=== PATIENT | female | born 1990 | race Caucasian/White ===

== ENCOUNTER 2019-05-05 08:03 | Inpatient (IN) | payer OTHER ==
[~2019-05-05] VITALS: Ht 160 cm; Wt 73.2 kg
[2019-05-05] VITALS (9 sets, daily range): BP systolic 112–124; BP diastolic 68–80
[2019-05-05] MEDS ORDERED: PRENTAB9 PO (08:19)
[2019-05-05] MEDS ORDERED: LACTATED RINGER'S 1000 ML IV STA (09:25)
[2019-05-05] MEDS: miSOPROStol 25 MCG 1/4 TAB (S0191) PO PRN ×3 (09:45→22:12)
[2019-05-05 09:59] LABS: BASO % 0.4 % (0.0-1.0); EOS % 0.4 % (0.0-3.0); HEMATOCRIT 34.2 % (36.0-47.0); HEMOGLOBIN 10.2 g/dl (12.0-15.5); LYMPH # 2.3 10^3/uL (1.5-5.0); LYMPH % 24.6 % (24.0-44.0); MEAN CORPUSCULAR HEMOGLOBIN 21.5 pg (27.0-33.0); MEAN CORPUSCULAR HGB CONC 29.8 g/dl (32.0-36.5); MONO # 0.6 10^3/uL (0.0-0.8); MONO % 6.5 % (0.0-5.0); NEUTROPHILS # 6.2 10^3/uL (1.5-8.5); NEUTROPHILS % 67.6 % (36.0-66.0); PLATELET COUNT, AUTOMATED 252 10^3/uL (150-450); RED BLOOD COUNT 4.75 10^6/uL (4.00-5.40); WHITE BLOOD COUNT 9.2 10^3/uL (4.0-10.0)
--- NOTE | 2019-05-05 10:50 | HPEPDOC ---
Obstetrical History & Physical General Date of Admission May 05, 2019 at 08:03 History of Present Illness Patient is a at 41.1wks by LMP c/w 8wk US. Here for postdates induction. No contractions, bleeding, loss of fluid. Good movement. Chief Complaint: Other (Postdates) Information Provided By: Patient Care Care: Good Care Dating Final EDC: Apr 27, 2019 Final EDC by: LMP LMP: July 21, 2018 Antepartum Course Height (inches): 63 Pre- weight (lbs.): 145 Admission Weight (lbs.): 162 Change in Weight (lbs.): 18 Past Medical History Past Obstetrical History : Past Obstetrical History: [employer] History: History of STD (Chlamydia 1st trimester) Past Medical History Medical History None Surgical History: [place] teeth, Other (Left fingers) Family History Significant Family History: No pertinent family hx Social History Marital Status: Family situation: Spouse/partner home Psychosocial History: No pertinent psych hx * Smoker: non-smoker Alcohol: Denies Drugs: denies Abuse Violence Screening Have you been hit/kicked/slapp: No Have you been sexually assault: No Imunizations Tdap status: current Influenza Status: declined Allergies Coded Allergies: No Known Allergies (Unverified , 05/05/19) Medications Scheduled No.137/Iron/Folic Acd ( Vitamin Tablet) 1 Each Tablet, 1 TAB PO DAILY Physical Examination Physical Examination GENERAL: Alert and oriented times three. BREAST: . ABDOMEN: Gravid and non-tender to touch. FETUS: Is vertex (VTX) by sterile vaginal examination (SVE), fetus is vertex (VTX) by Asaf with EFW 3500gm. HEART RATE: Regular rate and rhythm. LUNGS: Clear to auscultation (CTA). EXTREMITIES: No edema. Vital Signs/I&O Vital Signs Date Time Temp Pulse Resp B/P (MAP) Pulse Ox O2 Delivery O2 Flow Rate FiO2 05/05/19 08:16 98.4 92 18 122/76 (91) Laboratory Data 24H LABS Laboratory Tests 2 05/05/19 08:15: Serology Scanned Report Hepatitis B Testing 05/05/19 09:16: Immature Granulocyte % (Auto) 0.5, Neutrophils (%) (Auto) 67.6H, Lymphocytes (%) (Auto) 24.6, Monocytes (%) (Auto) 6.5H, Eosinophils (%) (Auto) 0.4, Basophils (%) (Auto) 0.4, Neutrophils # (Auto) 6.2, Lymphocytes # (Auto) 2.3, Monocytes # (Auto) 0.6, Eosinophils # (Auto) 0.0, Basophils # (Auto) 0.0, Nucleated Red Blood Cells % (auto) 0.0, Syphilis Serology NONREACTIVE CBC/BMP Laboratory Tests 05/05/19 09:16 Pertinent Laboratoy Data Blood Type: O+ RBC Antibody Screen: Negative Hepatitis B: Negative Rapid Plasma Reagin: Nonreactive Rubella: Immune Varicella: Immune Chlamydia/Gonorrhea: Negative Group B Streptococcus: Negative Quad Screen Test: Negative (21T done negative) Glucose Tolerance Test: 115 Anatomy Ultrasound Ultrasound Date: Dec 09, 2018 Placenta Location: Posterior Normal Anatomy: Yes Placenta Previa: No Estimated Weight (grams): 319 Steroid Therapy Steroid Therapy: No Vaginal Examination Dilation: Fingertip Effacement: other (0) Station: -3 Cervical Consistency: Firm Cervical Position: Posterior Presentation: Cephalic presentation Assessment Heart Rate (FHR): 120 Accelerations: Positive Decelerations: None Tocometer Contractions: Yes Frequency: irregular, greater than 9 min/apart Multi-drug resistant Organism: No history of MDRO Assessment/Plan Assessment Patient is a at 41.1wks by LMP c/w 8wk US. Admit for IOL and expect delivery by . Pain management per patient preference, which was discussed with her. I discussed risks of with patient of failure with section, distress, bleeding, infection, , vaginal or perineal or neighboring organ tear. She also understands that inductions are long processes which may take days. Currently, fetus is reassuring. GBS is negative, no need for antibiotics. Plan Admit and orient. Stroboroma Operator and consent. Diet: Regular. Group B Streptococcus (GBS) negative. Labs and intravenous (IV) per unit protocol. Counseled on Pitocin and induction of labor (IOL). Lactated Ringers (LR): Bolus 500 mL, then at 125 mL/hr once in active labor or epidural. Anticipate normal spontaneous delivery (). Will start induction with PO cytotec. Pain mgt per patient. Karey Pope MD May 05, 2019 10:50
[2019-05-05] MEDS ORDERED: ACETAMINOPHEN 500 MG TAB PO PRN (14:45)
[2019-05-05] MEDS: LR 1,000 ML IV SCH (22:24)
[2019-05-06] VITALS (17 sets, daily range): BP systolic 107–143; BP diastolic 62–101
[2019-05-06] MEDS: miSOPROStol 25 MCG 1/4 TAB (S0191) PO PRN (04:17)
--- NOTE | 2019-05-06 06:40 | IPNPDOC ---
Text Note Date of Service The patient was seen on 05/06/19. NOTE S: Patient has some cramping after initiation of Cytotec and then is comforta ble. No bleeding or discharge or loss of fluid. Good movement. No use of pain medications. A total of 4 Cytotec given. Last Cytotec given at 4 AM. O: Vital signs within normal limits. FHT: Category 1, 130s, reactive, no decelerations, irregular contractions. Abdomen nontender. Lower extremities nontender. Sterile vaginal exam deferred at this time. A/P: Patient is 28-year-old G1, P0 at 41 weeks with induction of labor via Cytotec for postdates. Fetus is reassuring. We will continue by mouth Cytotec and may consider Henry bulb with slight further dilation of the cervix. VS,Fishbone, I+O VS, Fishbone, I+O Laboratory Tests 05/05/19 09:16 Vital Signs Date Time Temp Pulse Resp B/P (MAP) Pulse Ox O2 Delivery O2 Flow Rate FiO2 05/06/19 05:19 67 126/86 (99) 05/06/19 04:01 97.8 18 I&O- Last 24 Hours up to 6 AM 05/06/19 06:00 Intake Total 1000 ml Balance 1000 ml Karey Pope MD May 06, 2019 06:40
--- NOTE | 2019-05-06 10:33 | IPNPDOC ---
Text Note Date of Service The patient was seen on 05/06/19. NOTE patient is a 28 yo G1 @ 41+2wks admitted for IOL for pending post dates. She had received cytotec 25mcg po x 4 doses. Denies feeling regular contractions. vitals: normal nad fht: 125/mod kenn/pos accel/no decel toco: irregular ctx ce: 1-2/50/-3 a/p patient no in labor, mukherjee bulb placed with 80cc placed on cervical side. continue with cytotec as needed. Le, DO VS,Fishbone, I+O VS, Fishbone, I+O Vital Signs Date Time Temp Pulse Resp B/P (MAP) Pulse Ox O2 Delivery O2 Flow Rate FiO2 05/06/19 08:13 97.8 88 18 123/73 (90) I&O- Last 24 Hours up to 6 AM 05/06/19 06:00 Intake Total 1000 ml Balance 1000 ml HO ADAMS DO May 06, 2019 10:33
[2019-05-06] MEDS ORDERED: miSOPROStol 50 MCG 1/2 TAB (S0191) SL ONE (15:00)
[2019-05-06] MEDS ORDERED: OXYTOCIN DRIP 30 UNITS in IV 1 EA IV SCH (16:30)
[2019-05-06] MEDS: LR 1,000 ML IV SCH (18:49)
[2019-05-06] MEDS ORDERED: BUTORPHANOL 2 MG/ML INJ (J0595) IV ONE (19:45)
[2019-05-06] MEDS ORDERED: PROMETHAZINE INJ 25 MG/ML VIAL (J2550) IV ONE (19:45)
[2019-05-07] VITALS (9 sets, daily range): BP systolic 104–138; BP diastolic 58–76
[2019-05-07] MEDS ORDERED: OXYTOCIN DRIP 30 UNITS in IV 1 EA IV SCH (01:46)
[2019-05-07] MEDS ORDERED: MEASLES,MUMPS,RUBELLA VACCINE INJ (MMR-II) (90707) SC SCH (02:00)
[2019-05-07] MEDS ORDERED: DIBUCAINE 1% OINTMENT 30GM TOP PRN (02:00)
[2019-05-07] MEDS ORDERED: DOCUSATE SODIUM 100 MG CAP PO PRN (02:00)
[2019-05-07] MEDS ORDERED: RHOGAM 300 MCG (1500 IU) INJ (J2790) IM SCH (02:00)
[2019-05-07] MEDS ORDERED: ACETAMINOPHEN TAB 650MG DOSE (2X325MG) PO PRN (02:00)
--- NOTE | 2019-05-07 02:00 | DNPDOC ---
[facility] Delivery Note Delivery Note DATE OF DELIVERY: 05/07/2019 PREDELIVERY DIAGNOSIS: 41+3/7 weeks' gestation. POST DELIVERY DIAGNOSIS: Delivered. PROCEDURE: Spontaneous vaginal delivery. NAIL PROFESSIONAL: Dr. Rhoda Monroe DO ANESTHESIA: none ESTIMATED BLOOD LOSS: 250mL. FINDINGS: 3340gm female infant, Score 7/9, nuchal cord times x1, right pos terior compound hand. DELIVERY SUMMARY: With good maternal effort, baby delivered OA, restituted ROT. Nuchal cord palpated, tight, unable to be reduced. Right compound hand delivered with posterior shoulder. Anterior (left shoulder) delivered. Body delivered while keeping cord close to introitus. Nuchal cord reduced. Baby placed on maternal abdomen. Cord allowed to stop pulsating. Cord clamped x 2 and cut by FOB. Cord blood collected per routine. Pitocin bolus started. Placenta delivered spontaneously. Fundus massaged firm. Inspection reveals minor abrasions not requiring repair. Baby and mother bonding when I left the room . DO BRYAN Monroe LUAT N. DO May 07, 2019 01:56
[2019-05-07] MEDS: IBUPROFEN 800 MG TAB PO PRN ×2 (03:51→17:12)
[2019-05-07] MEDS: PRENATAL VITAMINS CHEWABLE TABLET PO SCH (09:26)
[2019-05-08 06:21] VITALS: BP 131/74
--- NOTE | 2019-05-08 08:11 | IPNPDOC ---
Progress Note Date of Service: May 08, 2019 Day#: 1 Progress Note PPD 1 Monica is a 28yo [id number] s/p uncomplicated after IOL for LTG, delivering very early on 05/07, doing well day # 1. She has been ambulating, voiding spontaneously without issue and tolerating regular diet. Breast feeding without issue. Reports lochia is like a normal period. No f/c/n/v/SOB/CP. OBJECTIVE: VITAL SIGNS: Within normal limits, afebrile. Alert and oriented times three. Abdomen: Fundus firm at U-2. Soft, NTTP. Extremities: trace edema of BLE ASSESSMENT: Monica is a 28yo [id number] s/p uncomplicated after IOL for LTG, delivering very early on 05/07, doing well day # 1. Vitals within normal limits, afebrile, hemodynamically stable with no evidence of infection. PLAN: 1. Routine care 2. Tylenol and Motrin for pain. 3. Encourage breast feeding and ambulation. 4. would like to use condoms for contraception 5. regular diet 6. possible discharge home tomorrow if meeting all milestones Dr. Batsheva Allan MD VS, I&O, 24H, Fishbone Vital Signs/I&O Vital Signs Date Time Temp Pulse Resp B/P (MAP) Pulse Ox O2 Delivery O2 Flow Rate FiO2 05/08/19 06:21 97.6 86 18 131/74 (93) Room Air 99 Batsheva Allan MD May 08, 2019 08:11
[2019-05-08] MEDS: PRENATAL VITAMINS CHEWABLE TABLET PO SCH (08:59)
[2019-05-08 18:00] VITALS: BP 120/71
[2019-05-08] MEDS: IBUPROFEN 800 MG TAB PO PRN (21:52)
[2019-05-09 05:45] VITALS: BP 122/70
[2019-05-09] MEDS: PRENATAL VITAMINS CHEWABLE TABLET PO SCH (08:36)
[2019-05-09] MEDS: IBUPROFEN 800 MG TAB PO PRN (08:36)
--- NOTE | 2019-05-09 09:40 | OBDS ---
[facility] Obstetrical Discharge Sum. Obstetrical Discharge Summary Central Supply Assistant/Provider: HO ADAMS DO Date: May 09, 2019 : 1 Term: 1 Pre-term: 0 Abortions: 0 Livin VDRL: Non-Reactive Rh: Positive Rubella: Immune Sex: Female Infant Weight: grams (3340) A/P, Post Course List any complications Admission diagnosis: Gravid at 41+1wks Discharge diagnosis: () Condition at Discharge: stable Discharge Instructions: Home Activity: as tolerated Diet: regular Medications: filled at [facility] Follow-up: 6-8wks Hospital course: Patient admitted for induction of labor for pending post dates. She progressed to have an spontaneous vaginal delivery. course uncomplicated and patient discharged on day #2. HO ADAMS DO May 09, 2019 09:40
--- NOTE | 2019-05-09 09:42 | IPNPDOC ---
Progress Note Date of Service: May 09, 2019 Day#: 2 Progress Note Monica is a 28yo [id number] s/p uncomplicated after IOL for pending post da zack. She has no concerns today. She has been ambulating, voiding spontaneously without issue and tolerating regular diet. Breast feeding without issue. Reports lochia is like a normal period. Baby on bili lights. OBJECTIVE: VITAL SIGNS: Within normal limits, afebrile. Alert and oriented times three. Abdomen: Fundus firm at U-2. Soft, NTTP. Extremities: trace edema of BLE symmetrical a/p PPD #2, doing well. discussed contraceptive options, patient not interested at this time. continue routine ppc. d/c to boarding today. VS, I&O, 24H, Fishbone Vital Signs/I&O Vital Signs Date Time Temp Pulse Resp B/P (MAP) Pulse Ox O2 Delivery O2 Flow Rate FiO2 05/09/19 05:45 97.7 87 20 122/70 (87) Room Air 97 HO ADAMS DO May 09, 2019 09:42
== END 2019-05-09 12:00 | disposition home or self-care (01) | DRG 807 ==
LOC: M LDI 08:03 → M OBS 05-07 03:55
PROVIDERS: ADMIT Obstetrics & Gynecology; ATTEND Obstetrics & Gynecology
PROC: 3E0P7GC Introduction of Other Therapeutic Substance into Female Reproductive, Via Natural or Artificial Opening (ICD-10-PCS; 2019-05-05)
PROC: 10E0XZZ Delivery of Products of Conception, External Approach (ICD-10-PCS; principal; 2019-05-07)
DX: O48.0 Post-term pregnancy (principal); Z37.0 Single live birth; Z3A.41 41 weeks gestation of pregnancy; O32.6XX0 Maternal care for compound presentation, not applicable or unspecified; O69.1XX0 Labor and delivery complicated by cord around neck, with compression, not applicable or unspecified

== ENCOUNTER → 2021-08-17 | Outpatient (CLI) | payer OTHER ==
[~2021-08-17] MED LIST: PRENTAB9 PO
== END ==
LOC: M WHC 12:25
PROVIDERS: ATTEND Registered Nurse
DX: Z36.89 Encounter for other specified antenatal screening (principal); Z3A.37 37 weeks gestation of pregnancy; Z86.16 Personal history of COVID-19

== ENCOUNTER 2021-09-01 16:22 | Inpatient (IN) | payer OTHER ==
[~2021-09-01] VITALS: Ht 160 cm; Wt 69.0 kg
[2021-09-01] VITALS (7 sets, daily range): BP systolic 103–142; BP diastolic 66–91
[2021-09-01] MEDS ORDERED: HOME MED LIST COMPLETE! XX SCH (16:40)
[2021-09-01] MEDS ORDERED: OXYTOCIN INJ 10 UNITS/ML VIAL (J2590) IV PRN (16:55)
[2021-09-01] MEDS ORDERED: LR 1,000 ML IV SCH ×2 (16:55→18:55)
[2021-09-01] MEDS ORDERED: LACTATED RINGER'S 1000 ML IV ONE (16:55)
[2021-09-01] MEDS ORDERED: OXYTOCIN DRIP 30 UNITS in IV 1 EA IV PRN ×4 (16:55)
[2021-09-01] MEDS ORDERED: METHYLERGONOVINE MALEATE 0.2 MG/ML VIAL (J2210) IM PRN (16:55)
[2021-09-01] MEDS ORDERED: TRANEXAMIC ACID INJection 1,000 MG in NS 100 ML IV PRN (16:55)
[2021-09-01] MEDS ORDERED: OXYTOCIN INJ 10 UNITS/ML VIAL (J2590) As Ordered ONE (16:59)
[2021-09-01] MEDS ORDERED: OXYTOCIN 30 UNITS IN 0.9% NaCl 500ML IV BAG (J2590) As Ordered ONE (16:59)
[2021-09-01 17:23] LABS: HEMATOCRIT 35.5 % (36.0-47.0); HEMOGLOBIN 10.6 g/dl (12.0-15.5); MEAN CORPUSCULAR HEMOGLOBIN 20.7 pg (27.0-33.0); MEAN CORPUSCULAR HGB CONC 29.9 g/dl (32.0-36.5); MEAN CORPUSCULAR VOLUME 69.3 fl (80.0-96.0); PLATELET COUNT, AUTOMATED 271 10^3/uL (150-450); RED BLOOD COUNT 5.12 10^6/uL (4.00-5.40); WHITE BLOOD COUNT 17.9 10^3/uL (4.0-10.0)
[2021-09-01 17:38] LABS: CORD GAS ABE A -3.4; CORD GAS ABE V -3.9; CORD GAS HCO3 A 24.5 MEQ/L; CORD GAS HCO3 V 20.5 MEQ/L; CORD GAS O2 SAT A 16.4 %; CORD GAS O2 SAT V 67.5 %; CORD GAS PCO2 A 54.8 mmHg; CORD GAS PH A 7.268 UNITS; CORD GAS PH V 7.373 UNITS; CORD GAS PO2 V 25.8 mmHg; CORD GAS SBC A 19.5 MEQ/L; CORD GAS SBC V 20.5 MEQ/L; CORD GAS TCO2 A 26.2 MEQ/L; CORD GAS TCO2 V 21.6 MEQ/L
[2021-09-01] MEDS ORDERED: IBUPROFEN 600MG TAB PO PRN ×2 (18:10→18:55)
[2021-09-01] MEDS ORDERED: METHYLERGONOVINE MALEATE 0.2 MG TAB PO PRN (18:55)
[2021-09-01] MEDS ORDERED: TRANEXAMIC ACID INJection 1,000 MG in NS 100 ML IV ONE (18:55)
[2021-09-01] MEDS ORDERED: ANUSOL HC CREAM 30GM TOP PRN (18:55)
[2021-09-01] MEDS ORDERED: DIBUCAINE 1% OINTMENT 30GM TOP PRN (18:55)
[2021-09-01] MEDS ORDERED: MOM 30ML SUSPENSION UDC PO PRN (18:55)
[2021-09-01] MEDS ORDERED: METHYLERGONOVINE MALEATE 0.2 MG/ML VIAL (J2210) IM ONE (18:55)
[2021-09-01] MEDS ORDERED: OXYTOCIN INJ 10 UNITS/ML VIAL (J2590) IV ONE (18:55)
[2021-09-01] MEDS ORDERED: DOCUSATE SODIUM 100MG CAPSULE PO PRN (18:55)
[2021-09-01] MEDS ORDERED: RHOGAM 300 MCG (1500 IU) INJ (J2790) IM SCH (18:55)
[2021-09-01] MEDS ORDERED: OXYTOCIN DRIP 30 UNITS in IV 1 EA IV SCH ×4 (18:55)
[2021-09-01] MEDS ORDERED: ACETAMINOPHEN 500 MG TAB PO PRN (18:55)
[2021-09-01] MEDS ORDERED: ACETAMINOPHEN TAB 650MG DOSE (2X325MG) PO PRN (18:55)
[2021-09-02 06:00] VITALS: BP 102/66
[2021-09-02 06:49] LABS: HEMATOCRIT 33.3 % (36.0-47.0); HEMOGLOBIN 9.9 g/dl (12.0-15.5); MEAN CORPUSCULAR HEMOGLOBIN 20.8 pg (27.0-33.0); MEAN CORPUSCULAR HGB CONC 29.7 g/dl (32.0-36.5); MEAN CORPUSCULAR VOLUME 70.1 fl (80.0-96.0); PLATELET COUNT, AUTOMATED 229 10^3/uL (150-450); RED BLOOD COUNT 4.75 10^6/uL (4.00-5.40); WHITE BLOOD COUNT 14.6 10^3/uL (4.0-10.0)
[2021-09-02] MEDS ORDERED: PRENATAL VITAMINS CHEWABLE TABLET PO SCH (09:00)
[2021-09-03] MEDS ORDERED: MEASLES,MUMPS,RUBELLA VACCINE INJ (MMR-II) (90707) SC.IMMUN ONE (09:00)
== END 2021-09-02 11:41 | disposition home or self-care (01) | DRG 807 ==
LOC: M LDO 16:22 → M LDI 16:46 → M OBS 19:53
PROVIDERS: ADMIT Obstetrics & Gynecology; ATTEND Obstetrics & Gynecology
PROC: 10E0XZZ Delivery of Products of Conception, External Approach (ICD-10-PCS; principal; 2021-09-01)
PROC: 10907ZC Drainage of Amniotic Fluid, Therapeutic from Products of Conception, Via Natural or Artificial Opening (ICD-10-PCS; 2021-09-01)
DX: O77.0 Labor and delivery complicated by meconium in amniotic fluid (principal); Z37.0 Single live birth; Z3A.39 39 weeks gestation of pregnancy